=== PATIENT | male | born 1990 | race Caucasian/White ===

== ENCOUNTER → 2018-11-20 | Outpatient (CLI) | payer BC ==
--- NOTE | 2018-11-21 08:44 | KCIC ---
EXAM: Brain MRI without contrast. HISTORY: Mental status changes. Brain tumor. TECHNIQUE: Multiplanar, multisequence magnetic resonance imaging of the brain was performed without contrast. COMPARISON: There is no prior study for comparison at the time of dictation. FINDINGS: There is a large heterogeneous predominantly T2 hyperintense mass centered within the lateral aspect of the left cerebellum. This measures 5.4 cm transversely by 3.8 cm anteroposteriorly by 3.0 cm craniocaudally. There is T1 hyperintensity and susceptibility effect predominantly along the medial aspect of this mass, consistent with internal hemorrhage/hemosiderin deposition. There is surrounding T2/FLAIR hyperintensity due to edema. There is rightward midline shift and dilatation of the fourth ventricle. There are overlying suboccipital craniotomy changes. There are small focal areas of T2/FLAIR hyperintensity along the posterior and medial aspect of the aforementioned mass as well as along the medial aspect of the right cerebellum adjacent to the fourth ventricle. There is mass effect on the left brachium pontis and left aspect of the maren. There is mild asymmetric dilatation of the left lateral ventricle. There are focal areas of T2/FLAIR hyperintensity within the left greater than right occipital white matter. The orbits are unremarkable. There is minimal ethmoid sinus mucosal thickening. There is a tiny amount of fluid within the mastoid air cells. There are normal flow voids within the cerebral vessels. IMPRESSION: 1. 5.4 cm heterogeneous mass centered within the lateral aspect of the left cerebellum, with associated surrounding edema and mass effect with rightward midline shift and deformation of the brachium pontis and left aspect of the maren. There is hemorrhage/hemosiderin deposition predominantly within the medial aspect of this mass and there are overlying suboccipital craniotomy changes. The patient has a history of prior brain tumor resection and chemotherapy. However, there is no prior study to assess for interval change. Neurosurgical consultation, postcontrast imaging and correlation with prior studies is indicated. 2. Small focal areas of signal change within the left cerebellum surrounding the aforementioned mass as well as within the medial right cerebellum and bilateral occipital lobes. These lesions are nonspecific and may due to post therapeutic gliosis/encephalomalacia. The possibility of small satellite neoplastic lesions is not excluded. 3. Dilatation of the fourth ventricle, a component of which is likely postoperative. There is also slight asymmetric dilatation of the left greater than right lateral ventricles, without convincing hydrocephalus. Findings were discussed with at [facility] at 0800 on 11/21/2018. Electronically signed by: Peggy Vick MD (11/21/2018 8:41 AM) [id number]
== END | disposition home or self-care (01) ==
LOC: KCIC MRI 16:56
PROVIDERS: ATTEND Physician Assistant Medical
DX: G93.89 Other specified disorders of brain (principal); Z85.841 Personal history of malignant neoplasm of brain
CPT/HCPCS: 70551